=== PATIENT | female | born 1955 | race Caucasian/White ===

== ENCOUNTER 2021-03-04 10:09 | Outpatient (CLI) | payer MEDICARE | END 2021-03-04 10:10 | disposition home or self-care (01) | LOC: CSHMAMMO 10:09 | PROVIDERS: ATTEND Physician Assistant Medical | DX: Z12.31 Encounter for screening mammogram for malignant neoplasm of breast (principal) | CPT/HCPCS: 77063; 77067 ==

== ENCOUNTER 2022-01-30 12:57 | Outpatient (CLI) | payer MEDICARE | END 2022-01-30 12:58 | disposition home or self-care (01) | LOC: CSHCT 12:57 | PROVIDERS: ATTEND Nurse Practitioner Family | DX: R91.1 Solitary pulmonary nodule (principal) | CPT/HCPCS: 71250 ==

== ENCOUNTER 2022-03-07 14:18 | Outpatient (CLI) | payer MEDICARE | END 2022-03-07 14:19 | disposition home or self-care (01) | LOC: CSHMAMMO 14:18 | PROVIDERS: ATTEND Nurse Practitioner Family | DX: Z12.31 Encounter for screening mammogram for malignant neoplasm of breast (principal) | CPT/HCPCS: 77063; 77067 ==

== ENCOUNTER 2023-05-03 12:52 | Outpatient (CLI) | payer MEDICARE | END 2023-05-03 12:53 | disposition home or self-care (01) | LOC: CSHMAMMO 12:52 | PROVIDERS: ATTEND Nurse Practitioner Family | DX: Z12.31 Encounter for screening mammogram for malignant neoplasm of breast (principal) | CPT/HCPCS: 77063; 77067 ==

== ENCOUNTER 2023-10-04 12:35 | Outpatient (CLI) | payer MEDICARE | END 2023-10-04 12:36 | disposition home or self-care (01) | LOC: CSHMAMMO 12:35 | PROVIDERS: ATTEND Nurse Practitioner | DX: Z13.820 Encounter for screening for osteoporosis (principal); Z78.0 Asymptomatic menopausal state; M81.0 Age-related osteoporosis without current pathological fracture | CPT/HCPCS: 77080 ==